=== PATIENT | male | born 1960 | race African-American/Black ===

== ENCOUNTER 2020-04-17 06:28 | Outpatient (CLI) | payer OTHER ==
[2020-04-17 14:14] LABS: Hemoglobin 15.5 g/dL (14.0-18.0); Mean Corpuscular HGB CONC 32.3 G/DL (32.0-36.0); Mean Corpuscular Hemoglobin 29.2 PG (27.0-33.0); Mean Corpuscular Volume 90.6 fl (80.0-100.0); Mean Platelet Volume 11.1 fl (7.4-10.4); Platelet Count 375 10x3/uL (130-400); RBC Distribution Width 13.6 % (11.5-14.5); White Blood Cell (WBC) Count 9.2 10x3/uL (4.5-11.0)
[2020-04-17 14:20] LABS: Anion Gap 17 mmol/L (10-20); BUN (Urea Nitrogen) 18 mg/dL (8.4-25.7); Calc. Creatinine Clearance 0 mL/min (70-130); Calcium 9.6 mg/dL (7.8-10.44); Carbon Dioxide 28 mmol/L (22-29); Chloride 98 mmol/L (98-107); Estimated GFR-MDRD 85; Glucose 100 mg/dL (70-105); Potassium 4.5 mmol/L (3.5-5.1); Sodium 138 mmol/L (136-145)
[2020-04-18 03:08] LABS: SARS-CoV-2 MS2 Positive; SARS-CoV-2 N Gene Negative; SARS-CoV-2 S Gene Negative; SARS-CoV-2 by NAA Not Detected (NotDetected); SARS-CoV-2 orf1ab Negative
--- NOTE | 2020-04-18 07:07 | EKG ---
Test Reason : Blood Pressure : / mmHG Vent. Rate : 073 BPM Atrial Rate : 073 BPM P-R Int : 180 ms QRS Dur : 084 ms QT Int : 382 ms P-R-T Axes : 068 047 091 degrees QTc Int : 420 ms Normal sinus rhythm Nonspecific T wave abnormality Abnormal ECG No previous ECGs available Confirmed by DR. Parvez UMANA ([id number]) on 04/18/2020 7:07:19 AM Referred By: IRIS Confirmed By:DR. Parvez UMANA
== END 2020-04-17 06:29 | disposition home or self-care (01) ==
LOC: LABBT 06:28
PROVIDERS: ATTEND Neurological Surgery
DX: Z01.818 Encounter for other preprocedural examination (principal); Z20.828 Contact with and (suspected) exposure to other viral communicable diseases; M54.16 Radiculopathy, lumbar region
CPT/HCPCS: 80048; 85027; 87635; 93005; 93010; U0003

== ENCOUNTER 2020-04-22 05:44 | Day surgery (SDC) | payer OTHER ==
[2020-04-19 10:30] VITALS: BMI 42.5
[2020-04-22] MEDS ORDERED: Fentanyl 250 MCG/5 ML VIAL ONE (07:00)
[2020-04-22] MEDS ORDERED: Midazolam HCl 2 mg/2 ml Vial ONE (07:02)
--- NOTE | 2020-04-22 09:12 | OP ---
DATE OF PROCEDURE: 04/22/2020 [employer] CLERK: Marita Erickson PA-C PROCEDURES PERFORMED: Right L4-5 laminectomy, facetectomy, foraminotomy, and diskectomy; interbody arthrodesis; intervertebral biomechanical device; local morselized autograft; demineralized bone matrix; posterolateral arthrodesis; pedicle screw instrumentation, right L4-5. DESCRIPTION OF PROCEDURE: The patient was brought to the operating room and intubated. He was rolled in a prone position on gel-filled chest rolls. An incision was made exposing L4-5 and the level was confirmed by x-ray. We performed a right L4-5 laminectomy, facetectomy, foraminotomy, diskectomy, completely decompressing right L4 and right L5. The disk itself was then completely removed and bony endplates decorticated for the purpose of arthrodesis. An appropriate-sized intervertebral biomechanical PEEK device was brought into the field. It was filled with demineralized bone matrix, local morselized autograft, and tapped into place securely at L4-5. Next, pedicle screws were placed at right L4 and right L5 using lateral fluoroscopic guidance. The position was confirmed by x-ray. The felipe was secured between the screws, connected by nuts, which were final tightened. The wound was extensively irrigated. MAC hemostasis was secured. A combination of demineralized bone matrix and local morselized autograft was laid over the lamina and posterolateral surfaces for the purpose of arthrodesis. Vancomycin powder was applied and the wound was closed in anatomic layers. Job ID: [id number]
[2020-04-22] MEDS ORDERED: Tamsulosin HCl 0.4 MG CAP ONE (09:49)
[2020-04-22] MEDS ORDERED: Fentanyl 100 MCG/2 ML VIAL ONE ×2 (10:01→11:00)
[2020-04-22] MEDS ORDERED: Albuterol Sulfate HFA (OR ONLY) ONE (11:04)
[2020-04-22] MEDS ORDERED: Ondansetron PF 4 MG/2 ML Vial ONE (11:04)
[2020-04-22] MEDS ORDERED: PROPOFOL 200 MG/20 ML VIAL ONE (11:04)
[2020-04-22] MEDS ORDERED: Ketorolac Tromethamine 30 MG/ML VIAL ONE (11:04)
[2020-04-22] MEDS ORDERED: Lidocaine 1% PF 5 ML VIAL ONE (11:04)
[2020-04-22] MEDS ORDERED: PHENYLEPHRINE-NS 100 MCG/ML 10 ML SYRINGE ONE (11:04)
[2020-04-22] MEDS ORDERED: Rocuronium Bromide 10 MG/ML (10ML VIAL) ONE (11:04)
[2020-04-22] MEDS ORDERED: HYDROcodone/Acetaminophen 5/325 mg Tablet ONE (12:05)
== END 2020-04-22 13:45 | disposition home or self-care (01) ==
LOC: SDC 05:44
PROVIDERS: ATTEND Neurological Surgery
PROC: 0SG00AJ Fusion of Lumbar Vertebral Joint with Interbody Fusion Device, Posterior Approach, Anterior Column, Open Approach (ICD-10-PCS; principal; 2020-04-22)
PROC: 0ST20ZZ Resection of Lumbar Vertebral Disc, Open Approach (ICD-10-PCS; principal; 2020-04-22)
DX: M54.16 Radiculopathy, lumbar region (principal); I10 Essential (primary) hypertension; E78.5 Hyperlipidemia, unspecified; E11.9 Type 2 diabetes mellitus without complications; M19.90 Unspecified osteoarthritis, unspecified site; M10.9 Gout, unspecified; N40.0 Benign prostatic hyperplasia without lower urinary tract symptoms; Z79.84 Long term (current) use of oral hypoglycemic drugs; Z79.899 Other long term (current) drug therapy; Z88.8 Allergy status to other drugs, medicaments and biological substances
CPT/HCPCS: 76000; C1713; C1768; J0690; J1885; J2250; J2405; J2704; J3010; J3370; J3490